=== PATIENT | female | born 1940 | race Two or more races ===

== ENCOUNTER 2018-04-05 18:18 | Inpatient (IN) | payer OTHER ==
[~2018-04-05] VITALS: Ht 147.3 cm; Wt 53.7 kg
--- NOTE | 2018-04-05 18:20 | NUR ---
PT [id number] FROM HOME C/O ABDOMINAL DISCOMFORT, CONSTIPATION FOR 2WKS, PT IS AAOX4 JAPANESE SPEAKING, NOT IN RESPIRAOTRY DISTRESS, KEPT RESTED AND COMFORTABLE.
--- NOTE | 2018-04-05 18:25 | NUR ---
DR. ESTES AT BEDSIDE FOR EVAL.
--- NOTE | 2018-04-05 18:32 | NUR ---
LABS DRAWNED AND SENT TO LAB.
[2018-04-05] MEDS ORDERED: IV NS 0.9% 1,000 ML BAG IV ONE ×2 (19:00→20:00)
[2018-04-05] MEDS ORDERED: ACETAMINOPHEN ES 500 MG TABLET ONE (19:00)
[2018-04-05] MEDS ORDERED: ACETAMINOPHEN ES 500 MG TABLET PO ONE (19:00)
[2018-04-05] MEDS ORDERED: LOSA1TAB39 PO (19:10)
[2018-04-05] MEDS ORDERED: AMLO5TAB7 PO (19:10)
[2018-04-05] MEDS ORDERED: ATOR10TA PO (19:10)
[2018-04-05] MEDS ORDERED: CARV12.52 PO ×2 (19:10)
[2018-04-05 19:12] LABS: BASOPHILS % (AUTO) 0.1 % (0.0-2.0); EOSINOPHILS % (AUTO) 0.2 % (0.0-6.0); HEMATOCRIT 36 % (33-45); HEMOGLOBIN 12.2 g/dL (11.5-14.8); LYMPHOCYTES # (AUTO) 0.4 /CMM (0.8-4.8); LYMPHOCYTES % (AUTO) 2.7 % (20.0-44.0); MEAN CORPUSCULAR HGB CONC 34 g/dl (31.0-36.0); MEAN CORPUSCULAR VOLUME 96 fL (82-100); MONOCYTES # (AUTO) 0.1 /CMM (0.1-1.30); MONOCYTES % (AUTO) 0.4 % (2.0-12.0); NEUTROPHILS # (AUTO) 13.2 /CMM (1.8-8.9); NEUTROPHILS % (AUTO) 96.6 % (43.0-81.0); PLATELET COUNT (AUTO) 195 /CMM (150-450); RED BLOOD CELL COUNT(AUTO) 3.73 MIL/uL (4.0-5.2); WHITE BLOOD COUNT (AUTO) 13.6 K/uL (4.3-11.0)
--- NOTE | 2018-04-05 19:27 | NUR ---
ENDORSED TO ASHKAN ROBLES FOR ANGELA.
[2018-04-05 19:28] LABS: CARBON DIOXIDE 30 mmol/L (21-32); CHLORIDE 101 mmol/L (98-107); CREATININE 2.1 mg/dL (0.6-1.3); GLUCOSE 100 mg/dL (74-106); POTASSIUM 3.4 mmol/L (3.5-5.1); SODIUM SERUM 141 mmol/L (136-145); UREA NITROGEN, BLOOD 26 mg/dL (7-18)
--- NOTE | 2018-04-05 19:36 | NUR ---
PT O2 SAT 92%, PUT ON N/C @2LPM, SATURATION WENT UP TO 98%.
[2018-04-05 19:40] LABS: ALANINE AMINOTRANSFERASE 20 U/L (12-78); ALBUMIN 3.1 g/dL (3.4-5.0); ALKALINE PHOSPHATASE 115 U/L (46-116); ASPARTATE AMINOTRANSFERASE 31 U/L (15-37); BILIRUBIN,DIRECT 0.3 mg/dL (0.0-0.2); BILIRUBIN,TOTAL 1.7 mg/dL (0.2-1.0); TOTAL PROTEIN, SERUM 7.1 g/dL (6.4-8.2)
--- NOTE | 2018-04-05 19:47 | NUR ---
URINE COLLECTED AND SENT TO LAB FOR ANALYSIS
[2018-04-05 19:49] LABS: APPEARANCE,URINE SL CLOUDY (CLEAR); BILIRUBIN,URINE NEGATIVE (NEGATIVE); BLOOD, URINE TRACE-INTA Ery/uL (NEGATIVE); COLOR,URINE YELLOW (YELLOW); KETONES,URINE NEGATIVE (NEGATIVE); LEUKOCYTE ESTERASE ,URINE NEGATIVE (NEGATIVE); NITRITE, URINE POSITIVE (NEGATIVE); PH,URINE 7.5 (5.0-8.0); PROTEIN,URINE TRACE mg/dl (NEGATIVE); UGLUCOSE NEGATIVE (NEGATIVE); UROBILINOGEN,URINE 0.2 EU/dL (0.2)
--- NOTE | 2018-04-05 19:56 | NUR ---
PT STATES FEELING BETTER, ALTHOUGH HER BP REMAINS LOW. NOTIFIED. SECOND 1L N/S STARTED PER VERBAL ORDER FROM DR. ESTES.
[2018-04-05 19:57] LABS: BACTERIA,URINE Many /HPF (None Seen); RBC,URINE 0-2 /HPF (0-2); SQUAMOUS EPITHELIAL CELL,UR Few /HPF (None Seen); WBC,URINE 0-2 /HPF (0-3)
[2018-04-05] MEDS ORDERED: NOREPINEPHRINE 8 MG in IV D5W 500 ML IV ONE (20:00)
[2018-04-05] MEDS ORDERED: CEFTRIAXONE 2 G in IV D5W 50 ML IV ONE (20:00)
[2018-04-05] MEDS ORDERED: NOREPINEPHRINE 4 MG/4 ML AMPUL IV ONE (20:03)
[2018-04-05] MEDS ORDERED: CEFTRIAXONE 1 G VIAL ONE (20:03)
--- NOTE | 2018-04-05 20:15 | NUR ---
PICC LINE CONSENT OBTAINED FROM PT.
--- NOTE | 2018-04-05 20:33 | NUR ---
PICC LINE NURSE LARY AT BEDSIDE FOR PLACEMENT. PT TOLERATING WELL.
--- NOTE | 2018-04-05 20:43 | NUR ---
ACCOMPANIED PT TO CT, ON THE MONITOR, PT TOLERATED WELL, ALERT AND ORIENTATED.
--- NOTE | 2018-04-05 20:52 | NUR ---
PT BACK FROM CT.
--- NOTE | 2018-04-05 20:56 | NUR ---
LEVOPHED STARTED. PT BP 55/43. WILL CONTINUE TO MONITOR.
--- NOTE | 2018-04-05 21:16 | NUR ---
PT RESTING BED ALERT AND ORIENTATED X 4, STATING THAT SHE IS FEELING BETTER. BP TRENDING UPWARD.
[2018-04-05] MEDS ORDERED: POTASSIUM CHLORIDE 20 MEQ TAB.PRT.SR PO ONE ×2 (21:29→21:30)
[2018-04-05] MEDS ORDERED: Z GUARD REMEDY 2 OZ OINT TP PRN (21:30)
[2018-04-05] MEDS ORDERED: MAG HYDROX/AL HYDROX/SIMETH 30 ML UDC PO PRN (21:30)
[2018-04-05] MEDS ORDERED: NOREPINEPHRINE 16 MG in IV D5W 500 ML IV PRN (21:30)
[2018-04-05] MEDS ORDERED: ENOXAPARIN SODIUM 40 MG/0.4 ML DISP.SYRIN SQ SCH (21:30)
[2018-04-05] MEDS ORDERED: HYDROCODONE/APAP 5/325MG 1 EACH TABLET PO PRN (21:30)
[2018-04-05] MEDS ORDERED: HEPARIN INFUSION/D5W 500 ML IV PRN (21:30)
[2018-04-05] MEDS ORDERED: MAGNESIUM HYDROXIDE 30 ML UDC PO PRN (21:30)
[2018-04-05] MEDS ORDERED: ONDANSETRON HCL/PF 4 MG/2 ML VIAL IVP PRN (21:30)
[2018-04-05] MEDS ORDERED: ZOLPIDEM TARTRATE 5 MG TABLET PO PRN (21:30)
[2018-04-05] MEDS ORDERED: ASPIRIN 81 MG TAB.CHEW PO ONE (22:00)
[2018-04-05] MEDS ORDERED: HYDROCORTISONE SOD SUCCINATE 100 MG/2 ML VIAL IV STA (22:13)
--- NOTE | 2018-04-05 22:14 | NUR ---
REPORT GIVEN TO ANAI SOUZA RN.
[2018-04-05] MEDS ORDERED: ASPIRIN 81 MG TAB.CHEW ONE (22:18)
[2018-04-05] MEDS ORDERED: HYDROCORTISONE SOD SUCCINATE 100 MG/2 ML VIAL ONE (22:18)
--- NOTE | 2018-04-05 22:27 | NUR ---
Patient is resting comfortably in bed with eyes closed. Easily aroused. VSS
[2018-04-05] MEDS ORDERED: IV NS 0.9% 1,000 ML IV PRN (23:30)
[2018-04-05 23:34] LABS: CALCIUM, SERUM 7.4 mg/dL (8.5-10.1); CARBON DIOXIDE 27 mmol/L (21-32); CHLORIDE 104 mmol/L (98-107); CREATININE 1.9 mg/dL (0.6-1.3); GLUCOSE 133 mg/dL (74-106); POTASSIUM 2.9 mmol/L (3.5-5.1); SODIUM SERUM 140 mmol/L (136-145); UREA NITROGEN, BLOOD 25 mg/dL (7-18)
--- NOTE | 2018-04-05 23:58 | NUR ---
Patient is resting comfortably in bed with eyes closed. Easily aroused. VSS
[2018-04-06] VITALS (59 sets, daily range): BP systolic 63–125; BP diastolic 38–76
[2018-04-06] MEDS ORDERED: PIPERACILLIN /TAZOBACTAM 2.25 G in IV D5W 50 ML IV SCH ×2
[2018-04-06] MEDS ORDERED: PIPERACILLIN /TAZOBACTAM 4.5 G in IV D5W 50 ML IV SCH ×2
[2018-04-06] MEDS ORDERED: BISACODYL SUPP (10 MG) 10 MG/SUPP.RECT SUPP.RECT RC PRN (00:30)
[2018-04-06] MEDS ORDERED: BISACODYL (5 MG) 5 MG TABLET.DR PO PRN (00:30)
--- NOTE | 2018-04-06 00:30 | NUR ---
ICU/RN-ADMITTED THIS 77 Y/O FEMALE FROM ER PER ACLS PROTOCOL. VIA GURNEY,ACCOMPANIED BY ER STAFF. NURSING FOCUS:INFECTION, R/T DIAGNOSIS OF SEVERE SEPSIS. ROUTINE ICU ADMISSION CARE INITIATED.PT. IS AWAKE, ALERT, EXPRESSIVE OF NEEDS IN [place]. EKG SR , BP-147/105, ON LEVOPHED AT 12 MCG/MIN. WILL MONITOR PT. CLOSELY, WILL TITRATE LEVOPHED PER PROTOCOL. AFEBRILE. PT. IS A FULL CODE.
[2018-04-06] MEDS: IV NS 0.9% 1,000 ML IV PRN ×3 (00:53→17:20)
[2018-04-06] MEDS ORDERED: NOREPINEPHRINE 16 MG in IV D5W 500 ML IV PRN (01:00)
[2018-04-06] MEDS ORDERED: Calcium Gluconate 1GM/10ML 4.65 MEQ in IV NS 0.9% 50 ML IV ONE (01:00)
[2018-04-06] MEDS ORDERED: Calcium Gluconate 0.465 MEQ/ML VIAL IV ONE (01:21)
[2018-04-06] MEDS: POTASSIUM CL. PREMIX PERIPHER. 50 ML IV SCH ×8 (01:25→08:53)
[2018-04-06] MEDS ORDERED: PIPERACILLIN /TAZOBACTAM 2.25 G VIAL IV ONE (01:28)
[2018-04-06] MEDS: DOCUSATE SODIUM 250 MG CAPSULE PO SCH ×3 (01:46→16:06)
[2018-04-06] MEDS ORDERED: HEPARIN INFUSION/D5W 500 ML IV ONE (01:46)
[2018-04-06] MEDS: POLYETHYLENE GLYCOL 3350 17 GM POWD.PACK PO SCH ×2 (01:46→09:06)
[2018-04-06] MEDS: ATORVASTATIN 10 MG TABLET PO SCH ×2 (01:52→21:56)
[2018-04-06] MEDS ORDERED: HEPARIN SODIUM, PORCINE 5000 UNITS/1 ML VIAL IV ONE (02:00)
[2018-04-06] MEDS: NOREPINEPHRINE 8 MG in IV D5W 500 ML IV PRN ×3 (03:26→09:23)
[2018-04-06] MEDS ORDERED: NOREPINEPHRINE 4 MG/4 ML AMPUL IV ONE (03:28)
[2018-04-06 04:54] LABS: BASOPHILS % (AUTO) 0.1 % (0.0-2.0); HEMATOCRIT 31 % (33-45); HEMOGLOBIN 10.4 g/dL (11.5-14.8); LYMPHOCYTES # (AUTO) 0.7 /CMM (0.8-4.8); LYMPHOCYTES % (AUTO) 1.6 % (20.0-44.0); MEAN CORPUSCULAR HGB CONC 34 g/dl (31.0-36.0); MEAN CORPUSCULAR VOLUME 97 fL (82-100); MONOCYTES # (AUTO) 0.6 /CMM (0.1-1.30); MONOCYTES % (AUTO) 1.4 % (2.0-12.0); NEUTROPHILS # (AUTO) 45.1 /CMM (1.8-8.9); NEUTROPHILS % (AUTO) 96.9 % (43.0-81.0); PLATELET COUNT (AUTO) 163 /CMM (150-450); RED BLOOD CELL COUNT(AUTO) 3.16 MIL/uL (4.0-5.2)
[2018-04-06 05:00] LABS: WHITE BLOOD COUNT (AUTO) 46.6 K/uL (4.3-11.0)
[2018-04-06 05:19] LABS: CARBON DIOXIDE 26 mmol/L (21-32); CHLORIDE 108 mmol/L (98-107); CREATININE 1.6 mg/dL (0.6-1.3); GLUCOSE 227 mg/dL (74-106); MAGNESIUM 1.5 mg/dL (1.8-2.4); PHOSPHORUS 3.4 mg/dL (2.5-4.9); SODIUM SERUM 144 mmol/L (136-145); UREA NITROGEN, BLOOD 24 mg/dL (7-18)
[2018-04-06 05:53] LABS: BAND % (MANUAL) 14 % (0.0-5.0); LYMPHOCYTES % (MANUAL) 1 % (16-48); MONOCYTES % (MANUAL) 1 % (0-11.0); NEUTROPHILS % (MANUAL) 84 (42-76)
--- NOTE | 2018-04-06 07:54 | NUR ---
SVP RESEARCH & EBUSINESS OPERATIONS NOTE PATIENT IS AWAKE, ALERT, EXPRESSIVE OF NEEDS IN [place].ORIENTED X3 , ON TELE MONITOR SR ON LEVOPHED DRIP AT 28 MCG/MIN. WILL MONITOR PT. CLOSELY, WILL TITRATE LEVOPHED PER PROTOCOL. AFEBRILE. , WITH RT UPPER ARM PICC LINE OM HEPARIN DRIP ORDERED , AND ON IVF ORDERED AND KCL IS INFUSION ORDERED, BED IN LOWEST AND LOCKED POSITION ABLE TO MAKE BM ,KEEP CLEAN DRY , CALL LIGHT WITHIN REACH
[2018-04-06 08:13] LABS: BASOPHILS % (AUTO) 0.1 % (0.0-2.0); HEMATOCRIT 32 % (33-45); HEMOGLOBIN 10.9 g/dL (11.5-14.8); LYMPHOCYTES % (AUTO) 1.8 % (20.0-44.0); MEAN CORPUSCULAR HGB CONC 34 g/dl (31.0-36.0); MEAN CORPUSCULAR VOLUME 98 fL (82-100); MONOCYTES % (AUTO) 1.8 % (2.0-12.0); NEUTROPHILS # (AUTO) 52.2 /CMM (1.8-8.9); NEUTROPHILS % (AUTO) 96.3 % (43.0-81.0); PLATELET COUNT (AUTO) 192 /CMM (150-450)
[2018-04-06 08:17] LABS: WHITE BLOOD COUNT (AUTO) 54.2 K/uL (4.3-11.0)
[2018-04-06 08:44] LABS: PHOSPHORUS 2.5 mg/dL (2.5-4.9)
[2018-04-06 08:55] LABS: THYROID STIMULATING HORMONE 0.959 uIU/mL (0.358-3.74)
[2018-04-06] MEDS: HYDROCORTISONE SOD SUCCINATE 100 MG/2 ML VIAL IV SCH ×3 (09:00→16:07)
[2018-04-06] MEDS ORDERED: AMLODIPINE BESYLATE 5 MG TABLET PO SCH (09:00)
--- NOTE | 2018-04-06 09:44 | NUR ---
BREAD DISTRIBUTOR NOTE ECHO DONE ORDERED , PTT DROWN ORDERED , DR QUIROZ NOTIFIED THAT WBC 54 NO NEW ORDER AT THIS TIME
[2018-04-06] MEDS: PIPERACILLIN /TAZOBACTAM 3.375 G in IV D5W 100 ML IV SCH ×2 (09:50→21:56)
--- NOTE | 2018-04-06 10:00 | NUR ---
FILING AND POLISHING SUPERVISOR NOTE PTT ABOVE 170 ,PER HOSPITAL PROTOCOL WILL HOLD FOR HEPARIN DRIP FOR ONE HOUR AND DECREASE TO 150 UNITS ,WILL MONITOR CLOSELY
--- NOTE | 2018-04-06 11:45 | NUR ---
agricultural produce commission agent note restart heparin drip at 650 units as ordered per hospital protocol
--- NOTE | 2018-04-06 11:59 | NUR ---
CHEMICAL PUMPER NOTE DR PARRA NOTIFIED THAT BLOOD CX GRAM NEGACIDE RODS AWARE THAT ON ZOSYN ALSO NOTIFYED THAT WBC 54 ,AWARE THAT K WAS INFUSED ,WILL COLLECT STOOL FOR C DF ORDERED
[2018-04-06] MEDS ORDERED: Magnesium 1GM/D5W 100ML PREMIX 100 ML IV SCH (12:00)
[2018-04-06] MEDS: FLUDROCORTISONE 0.1 MG TABLET PO SCH ×2 (12:05→17:17)
--- NOTE | 2018-04-06 12:51 | NUR ---
SUPERVISOR RESEARCH SHOP NOTE EKG DONE ORDERED
--- NOTE | 2018-04-06 14:00 | NUR ---
BICYCLE MESSENGER NOTE \ BP STILL LOW 88/[address] AIDA MAY LEVOPHED 16 MCG\ML, WILL F\U
[2018-04-06] MEDS: NOREPINEPHRINE 16 MG in IV D5W 500 ML IV PRN (14:27)
--- NOTE | 2018-04-06 15:56 | NUR ---
MULE RIDER NOTE STOOL FOR CDIF COLLECTED ORDERED, KEEP CLEAN DRY
--- NOTE | 2018-04-06 17:13 | NUR ---
COURT STENOGRAPHER NOTE PTT NOT READY YET, WILL F\U WITH LAB
--- NOTE | 2018-04-06 17:53 | NUR ---
ASSIGNMENT EDITOR NOTE PTT 134.7, PER HOSPITAL PROTOCOL WILL HOLD HEPARIN DRIP FOR ONE HOUR AND THEN DECREASE TO 150 UNITS AND START AT 1900 AT 500 UNITS\HR
[2018-04-06] MEDS ORDERED: CARVEDILOL 12.5 MG TABLET PO SCH (18:00)
--- NOTE | 2018-04-06 18:26 | NUR ---
PRINTED CIRCUIT BOARDS SOLDER LEVELER NOTE FAMILY AT BEDSIDE , PATIENT HAS DINNER , ABLE TO FEED SELF WITH ASSISTANCE , CONT ON LEVOPHED DRIP ORDERED AND IVF ORDERED , HEPARIN DRIP ON HOLD AT THIS TIME ,WILL CONT TO MONITOR CLOSELY
--- NOTE | 2018-04-06 19:23 | NUR ---
Patient speaks Hungarian, has good family support.She lives at home with family. Prior to admit she was ambulatory and semi-independent with adl's. Has no DME or homehealth reported. She is currently on Levophed and heparin gtt. Approval ICU LOC received from [place]. Plan to transfer [place] when stable. Addendum: 04/06/18 at 1924 by MERVIN LEDESMA RN Amended: Links added.
--- NOTE | 2018-04-06 20:20 | NUR ---
FINANCIAL REPORTING SPECIALIST NOTES RECEIVED PATIENT AWAKE,ALERT,NOT IN ANY DISTRESS,DENIES ANY PAIN.FAMILY AT BEDSIDE,PATIENT CONVERSES IN [place],COHERENT AND APPROPRIATE( PER FAMILY),FOLLOWS COMMANDS. ON LEVOPHED DRIP FOR BP SUPPORT VIA RRUA PICC LINE,HEPARIN DRIP AT 500 UNITS/HR (DOSE ADJUSTED AT 1900 PM BASED ON PROTOCOL( VRU=776).WILL RECHECKED PTT AT 12 MIDNIGHT . WILL CLOSELY MONITOR FOR BLEEDING,WILL CLOSELY MONITOR FOR CHEST PAIN. COMFORT CARE DONE ,NEEDS ATTENDED.
[2018-04-07] VITALS (78 sets, daily range): BP systolic 65–139; BP diastolic 45–77
--- NOTE | 2018-04-07 | NUR ---
CAREER DEVELOPMENT MANAGER NOTES REMAINS STABLE,SLOWLY TITRATING DOWN LEVOPHED DRIP ,TOLERATING WELL.NO BLEEDING NOTED ,STILL ON HEPARIN DRIP AT 500 U/HR
[2018-04-07] MEDS: FLUDROCORTISONE 0.1 MG TABLET PO SCH ×2 (00:28→06:29)
[2018-04-07] MEDS: NOREPINEPHRINE 16 MG in IV D5W 500 ML IV PRN (00:33)
[2018-04-07] MEDS: IV NS 0.9% 1,000 ML IV PRN ×3 (00:39→17:58)
--- NOTE | 2018-04-07 01:25 | NUR ---
PTT=74, HEPSRIN DRIP DECREASE BY 500 UNITS PER [facility] PROTOCOL( 450 UNITS /HR).WILL RECHECKED PTT IN 6 HOURS.
--- NOTE | 2018-04-07 04:00 | NUR ---
PHLEBOTOMY SUPERVISOR NOTE STABLE,LEVOPHED DOWN TO 10 MCG,NO BLEEDING ,STILL ON HEPARIN DRIP.
[2018-04-07 04:48] LABS: BASOPHILS # (AUTO) 0.2 /CMM (0.0-0.2); BASOPHILS % (AUTO) 0.4 % (0.0-2.0); EOSINOPHILS % (AUTO) 0.3 % (0.0-6.0); HEMATOCRIT 30 % (33-45); HEMOGLOBIN 10.1 g/dL (11.5-14.8); LYMPHOCYTES # (AUTO) 1.1 /CMM (0.8-4.8); LYMPHOCYTES % (AUTO) 2.1 % (20.0-44.0); MEAN CORPUSCULAR HGB CONC 34 g/dl (31.0-36.0); MEAN CORPUSCULAR VOLUME 97 fL (82-100); MONOCYTES # (AUTO) 0.7 /CMM (0.1-1.30); MONOCYTES % (AUTO) 1.3 % (2.0-12.0); NEUTROPHILS # (AUTO) 51.6 /CMM (1.8-8.9); NEUTROPHILS % (AUTO) 95.9 % (43.0-81.0); PLATELET COUNT (AUTO) 157 /CMM (150-450); RED BLOOD CELL COUNT(AUTO) 3.08 MIL/uL (4.0-5.2)
[2018-04-07 05:00] LABS: ALANINE AMINOTRANSFERASE 20 U/L (12-78); ALBUMIN 2.1 g/dL (3.4-5.0); ALKALINE PHOSPHATASE 96 U/L (46-116); ASPARTATE AMINOTRANSFERASE 27 U/L (15-37); BILIRUBIN,TOTAL 0.8 mg/dL (0.2-1.0); CALCIUM, SERUM 7.5 mg/dL (8.5-10.1); CARBON DIOXIDE 24 mmol/L (21-32); CHLORIDE 110 mmol/L (98-107); CREATININE 1.1 mg/dL (0.6-1.3); GLUCOSE 221 mg/dL (74-106); MAGNESIUM 1.6 mg/dL (1.8-2.4); POTASSIUM 3.7 mmol/L (3.5-5.1); SODIUM SERUM 144 mmol/L (136-145); UREA NITROGEN, BLOOD 20 mg/dL (7-18)
[2018-04-07 05:32] LABS: WHITE BLOOD COUNT (AUTO) 53.8 K/uL (4.3-11.0)
[2018-04-07 05:49] LABS: BAND % (MANUAL) 10 % (0.0-5.0); LYMPHOCYTES % (MANUAL) 3 % (16-48); MONOCYTES % (MANUAL) 1 % (0-11.0); NEUTROPHILS % (MANUAL) 86 (42-76)
--- NOTE | 2018-04-07 06:00 | NUR ---
FACILITIES CUSTODIAN NOTES REMAINS STABLE ,NO BLEEDING,NO CHEST PAIN.LEVOPHED DRIP NOW AT 6 MCG/MIN. BP STABLE. 0700 AWAITING PTT RESULT.REPORT GIVEN TO ERIN LUTHER
[2018-04-07] MEDS ORDERED: FLUDROCORTISONE 0.1 MG TABLET ONE (06:16)
[2018-04-07] MEDS: Magnesium 1GM/D5W 100ML PREMIX 100 ML IV SCH ×2 (07:52→09:01)
--- NOTE | 2018-04-07 08:55 | NUR ---
received pt from conduit mechanic, a/o x4, SR, receiving levo at 6mcg, heparin drip off at 0700, NC at 2L sat well, tolerates diet, v/s stable, no pain, family at the bedside.
[2018-04-07] MEDS: POLYETHYLENE GLYCOL 3350 17 GM POWD.PACK PO SCH (09:01)
[2018-04-07] MEDS: DOCUSATE SODIUM 250 MG CAPSULE PO SCH ×2 (09:01→17:00)
[2018-04-07] MEDS: PIPERACILLIN /TAZOBACTAM 3.375 G in IV D5W 100 ML IV SCH ×2 (10:19→21:37)
--- NOTE | 2018-04-07 12:37 | NUR ---
pt is resting in the bed, SR, on levo at 7mcg, v/s stable, no pain, pt turned and repositioned q2hrs.
--- NOTE | 2018-04-07 16:54 | NUR ---
pt is resting in the bed, SR, on levo at 7mcg, on 2L 02 sat well, v/s stable, no pain, pt cleaned, changed and repositioned q2hrs.
--- NOTE | 2018-04-07 19:30 | NUR ---
ICU/RN RECEIVED PT AAOX3,SPEAKS AND UNDERSTAND ONLY WELSH.SPOKE TO PT IN BROKEN WELSH,ABLE TO UNDERSTAND WHAT IS BEING SAID.ON LEVOPHED DRIP AT 6MCG/MIN.WILL ATTEMPT TO WEAN PT OFF PRESSOR.
--- NOTE | 2018-04-07 20:00 | NUR ---
ICU/MEDICAL AFFAIRS DIRECTOR AT BED SIDE VISITING,CONDITION REPORT GIVEN AND PLAN OF CARE DISCUSSED W/FAMILY AND PT.LEVOPHED DRIP DECREASED TO 5MCG/MIN.
[2018-04-07] MEDS: ATORVASTATIN 10 MG TABLET PO SCH (21:36)
[2018-04-08] VITALS (29 sets, daily range): BP systolic 92–147; BP diastolic 46–89
--- NOTE | 2018-04-08 02:00 | NUR ---
ICU/RN LEVOPHED DRIP TAPERED TO OFF,W/SBP OF 125MMHG.PT VOIDING FREQUENTLY.OFFERS NO COMPLAINTS.
[2018-04-08] MEDS: IV NS 0.9% 1,000 ML IV PRN (02:05)
--- NOTE | 2018-04-08 04:04 | NUR ---
ICU/RN REMAINS OFF LEVOPHED W/SBP 112MMHG.DENIES PAIN OR DISCOMFORT.MONITOR SINUS FRANKLYN.
[2018-04-08 05:29] LABS: ALANINE AMINOTRANSFERASE 17 U/L (12-78); ALBUMIN 1.8 g/dL (3.4-5.0); ALKALINE PHOSPHATASE 58 U/L (46-116); ASPARTATE AMINOTRANSFERASE 17 U/L (15-37); BILIRUBIN,TOTAL 0.7 mg/dL (0.2-1.0); CALCIUM, SERUM 6.9 mg/dL (8.5-10.1); CARBON DIOXIDE 26 mmol/L (21-32); CHLORIDE 115 mmol/L (98-107); CREATININE 0.9 mg/dL (0.6-1.3); GLUCOSE 84 mg/dL (74-106); MAGNESIUM 1.6 mg/dL (1.8-2.4); PHOSPHORUS 1.8 mg/dL (2.5-4.9); SODIUM SERUM 150 mmol/L (136-145); TOTAL PROTEIN, SERUM 5.1 g/dL (6.4-8.2); UREA NITROGEN, BLOOD 11 mg/dL (7-18)
[2018-04-08 05:42] LABS: BASOPHILS # (AUTO) 0.1 /CMM (0.0-0.2); BASOPHILS % (AUTO) 0.3 % (0.0-2.0); EOSINOPHILS % (AUTO) 0.7 % (0.0-6.0); HEMATOCRIT 28 % (33-45); HEMOGLOBIN 9.5 g/dL (11.5-14.8); LYMPHOCYTES # (AUTO) 1.7 /CMM (0.8-4.8); LYMPHOCYTES % (AUTO) 7.3 % (20.0-44.0); MEAN CORPUSCULAR HGB CONC 34 g/dl (31.0-36.0); MEAN CORPUSCULAR VOLUME 97 fL (82-100); MONOCYTES # (AUTO) 0.5 /CMM (0.1-1.30); MONOCYTES % (AUTO) 2.1 % (2.0-12.0); NEUTROPHILS # (AUTO) 21.5 /CMM (1.8-8.9); NEUTROPHILS % (AUTO) 89.6 % (43.0-81.0); PLATELET COUNT (AUTO) 102 /CMM (150-450)
[2018-04-08] MEDS ORDERED: POTASSIUM CL. PREMIX PERIPHER. 50 ML ONE (06:40)
[2018-04-08] MEDS: POTASSIUM CL. PREMIX PERIPHER. 50 ML IV SCH ×2 (06:42→08:04)
--- NOTE | 2018-04-08 06:50 | NUR ---
ICU/RN POTASSIUM OF 2.0 WILL BE REPLACED W/ 60MEQ IVPB ORDERED BUY .IVF DC'D ORDERED BY SAME
[2018-04-08] MEDS ORDERED: IV NS 0.9% 250 ML BAG IV PRN (07:00)
--- NOTE | 2018-04-08 07:09 | NUR ---
ICU/RN REPORT AND CARE OF PT.GIVEN TO ERIN Lindsay
[2018-04-08] MEDS: DOCUSATE SODIUM 250 MG CAPSULE PO SCH ×2 (08:05→17:32)
[2018-04-08] MEDS: POLYETHYLENE GLYCOL 3350 17 GM POWD.PACK PO SCH (08:05)
[2018-04-08] MEDS: POTASSIUM CHLORIDE 20 MEQ TAB.PRT.SR PO SCH ×4 (08:32→12:26)
[2018-04-08] MEDS: Magnesium 1GM/D5W 100ML PREMIX 100 ML IV SCH ×2 (08:32→09:37)
--- NOTE | 2018-04-08 08:57 | NUR ---
received pt from film processing shift supervisor, a/o x4, SR, on 2L NC, sat well, v/s stable, no pain, pt turns and repositions by herself, family at the bedside.
[2018-04-08 08:59] LABS: BASOPHILS # (AUTO) 0.1 /CMM (0.0-0.2); BASOPHILS % (AUTO) 0.4 % (0.0-2.0); EOSINOPHILS % (AUTO) 0.9 % (0.0-6.0); HEMATOCRIT 31 % (33-45); HEMOGLOBIN 10.7 g/dL (11.5-14.8); LYMPHOCYTES # (AUTO) 1.4 /CMM (0.8-4.8); LYMPHOCYTES % (AUTO) 7.1 % (20.0-44.0); MEAN CORPUSCULAR HGB CONC 35 g/dl (31.0-36.0); MEAN CORPUSCULAR VOLUME 95 fL (82-100); MONOCYTES # (AUTO) 0.4 /CMM (0.1-1.30); MONOCYTES % (AUTO) 1.9 % (2.0-12.0); NEUTROPHILS # (AUTO) 17.9 /CMM (1.8-8.9); NEUTROPHILS % (AUTO) 89.7 % (43.0-81.0); PLATELET COUNT (AUTO) 108 /CMM (150-450); RED BLOOD CELL COUNT(AUTO) 3.27 MIL/uL (4.0-5.2); WHITE BLOOD COUNT (AUTO) 19.9 K/uL (4.3-11.0)
[2018-04-08] MEDS: PIPERACILLIN /TAZOBACTAM 3.375 G in IV D5W 100 ML IV SCH ×2 (09:03→21:29)
[2018-04-08 09:20] LABS: ALANINE AMINOTRANSFERASE 19 U/L (12-78); ALKALINE PHOSPHATASE 63 U/L (46-116); ASPARTATE AMINOTRANSFERASE 23 U/L (15-37); BILIRUBIN,TOTAL 0.8 mg/dL (0.2-1.0); CALCIUM, SERUM 7.2 mg/dL (8.5-10.1); CARBON DIOXIDE 26 mmol/L (21-32); CHLORIDE 113 mmol/L (98-107); CREATININE 0.9 mg/dL (0.6-1.3); GLUCOSE 105 mg/dL (74-106); MAGNESIUM 1.6 mg/dL (1.8-2.4); PHOSPHORUS 1.5 mg/dL (2.5-4.9); SODIUM SERUM 149 mmol/L (136-145); TOTAL PROTEIN, SERUM 5.7 g/dL (6.4-8.2); UREA NITROGEN, BLOOD 10 mg/dL (7-18)
[2018-04-08 09:22] LABS: POTASSIUM 2.2 mmol/L (3.5-5.1)
[2018-04-08] MEDS ORDERED: K PHOS NEUTRAL 250 MG TABLET PO ONE (10:00)
--- NOTE | 2018-04-08 10:00 | NUR ---
pt is on cool aerosol. Addendum: 04/08/18 at 1530 by ERIN FARRELL RN wrong documentation, wrong patient
--- NOTE | 2018-04-08 14:00 | NUR ---
RECEIVED REPORT FROM ERIN LUTHER FROM ICU. PATIENT IS GOING TO BE TRANSFERRED TO TELEMETRY FLOOR.
--- NOTE | 2018-04-08 15:30 | NUR ---
POWDER MIXERADAPTED PHYSICAL EDUCATION AIDE NOTE RECEIVED PATIENT FROM ICU. PATIENT IS TRANSFERRED TO TELEMETRY FLOOR FOR LOWER ACUITY OF CARE. PATIENT IS ALERT ORIENTED X4. UZBEK SPEAKING, FAMILY AT BEDSIDE, HELP WITH COMMUNICATION. PATIENT IS ON 2L O2 VIA NC TOLERATING WELL. IN NO APPARENT DISTRESS OR DISCOMFORT AT THIS TIME. RESPIRATIONS EVEN AND UNLABORED. DENIES PAIN AND SOB. PATIENT IS STABLE, VITALS SIGNS STABLE. AFEBRILE AT THIS TIME. WAS PLACED ON TELE MONITORING, SR AND HR IN 80S. PHYSICAL ASSESSMENT PERFORMED, SKIN IS INTACT. RIGHT FA PICC LINE IN PLACE, FLASHED, PATENT AND INTACT. PATIENT WAS MADE COMFORTABLE IN BED. SAFETY MEASURES APPLIED, BED IN LOW LOCKED POSITION, SIDE RAILS UP X2, CALL LIGHT WITHIN EASY REACH. WILL CONTINUE TO MONITOR AND CARRY OUT FURTHER ORDERS.
--- NOTE | 2018-04-08 15:30 | NUR ---
pt transferred to [facility], ACLS followed, stable, family at the bedside, report given to Tika.
--- NOTE | 2018-04-08 18:48 | NUR ---
POCKET SETTER CLOSING NOTE PATIENT SITTING IN BED. ALERT ORIENTED X4. ON ROOM AIR, TOLERATING WELL. IN NO APPARENT DISTRESS OR DISCOMFORT AT THIS TIME. RESPIRATIONS EVEN AND UNLABORED. DENIES PAIN AND SOB. PATIENT IS STABLE, VITALS SIGNS STABLE. AFEBRILE AT THIS TIME. ON TELE MONITORING, SR AND HR IN 70S. PATIENT IS ABLE TO COMMUNICATE NEEDS IN [place]. FAMILY AT BEDSIDE ASSISTING WITH COMMUNICATION. RIGHT FA PICC LINE IN PLACE, FLASHED, PATENT AND INTACT. PATIENT KEPT CLEAN AND COMFORTABLE. ALL NEEDS ATTENDED, SAFETY MEASURES IN PLACE, BED IN LOW LOCKED POSITION, SIDE RAILS UP X2, CALL LIGHT WITHIN EASY REACH, WILL ENDORSE TO PM NURSE FOR ANGELA.
--- NOTE | 2018-04-08 19:10 | NUR ---
RN OPENING NOTES PT AWAKE AND RESTING IN BED. FAMILY AT BEDSIDE. PT PRIMARILY [place] SPEAKER. NO COMPLAINTS OF PAIN, SOB OR DISTRESS AT THIS TIME. PT TELE MONITORED AT SR WITH A RATE OF 75. PT HAS A RIGHT FA PICC INTACT AND PATENT. SAFETY PRECAUTIONS IN PLACE, BED IN LOWEST LOCKED POSITION, X2 SIDE RAILS UP AND CALL LIGHT WITHIN REACH. WILL CONTINUE TO MONITOR.
[2018-04-08] MEDS ORDERED: PIPERACILLIN /TAZOBACTAM 3.375 G VIAL IV ONE (21:15)
[2018-04-08] MEDS: ATORVASTATIN 10 MG TABLET PO SCH (21:28)
[2018-04-09] VITALS: BP 152/93
[2018-04-09 04:00] VITALS: BP 106/54
[2018-04-09] MEDS: ACETAMINOPHEN 325 MG TABLET PO PRN (04:56)
--- NOTE | 2018-04-09 06:41 | NUR ---
RN CLOSING NOTES PT AWAKE AND RESTING IN BED. PT PRIMARILY [place]OV[place] SPEAKER. NO COMPLAINTS OF PAIN, SOB OR DISTRESS OVERNIGHT. PT GIVEN TYLENOL FOR TEMP OF 99.6, TEMP CURRENTLY 98.9. PT TELE MONITORED AT SR WITH A RATE OF 75. PT HAS A RIGHT FA PICC INTACT AND PATENT. SAFETY PRECAUTIONS IN PLACE, BED IN LOWEST LOCKED POSITION, X2 SIDE RAILS UP AND CALL LIGHT WITHIN REACH. WILL ENDORSE TO DAY SHIFT NURSE FOR CONTINUITY OF CARE.
[2018-04-09 06:50] LABS: BASOPHILS % (AUTO) 0.4 % (0.0-2.0); EOSINOPHILS % (AUTO) 1.3 % (0.0-6.0); HEMATOCRIT 27 % (33-45); HEMOGLOBIN 9.5 g/dL (11.5-14.8); LYMPHOCYTES # (AUTO) 0.8 /CMM (0.8-4.8); LYMPHOCYTES % (AUTO) 11.4 % (20.0-44.0); MEAN CORPUSCULAR HGB CONC 35 g/dl (31.0-36.0); MEAN CORPUSCULAR VOLUME 95 fL (82-100); MONOCYTES # (AUTO) 0.4 /CMM (0.1-1.30); NEUTROPHILS # (AUTO) 6.1 /CMM (1.8-8.9); NEUTROPHILS % (AUTO) 81.9 % (43.0-81.0); PLATELET COUNT (AUTO) 103 /CMM (150-450); RED BLOOD CELL COUNT(AUTO) 2.88 MIL/uL (4.0-5.2); WHITE BLOOD COUNT (AUTO) 7.4 K/uL (4.3-11.0)
[2018-04-09 07:06] LABS: ALANINE AMINOTRANSFERASE 18 U/L (12-78); ALBUMIN 1.9 g/dL (3.4-5.0); ALKALINE PHOSPHATASE 59 U/L (46-116); ASPARTATE AMINOTRANSFERASE 19 U/L (15-37); CALCIUM, SERUM 7.1 mg/dL (8.5-10.1); CARBON DIOXIDE 27 mmol/L (21-32); CHLORIDE 111 mmol/L (98-107); CREATININE 0.8 mg/dL (0.6-1.3); GLUCOSE 79 mg/dL (74-106); MAGNESIUM 1.8 mg/dL (1.8-2.4); PHOSPHORUS 1.9 mg/dL (2.5-4.9); SODIUM SERUM 146 mmol/L (136-145); TOTAL PROTEIN, SERUM 5.2 g/dL (6.4-8.2); UREA NITROGEN, BLOOD 9 mg/dL (7-18)
[2018-04-09 07:20] LABS: POTASSIUM 2.7 mmol/L (3.5-5.1)
--- NOTE | 2018-04-09 07:56 | NUR ---
WHOLESALE AGRONOMIST OPENING NOTE RECEIVED PATIENT IN BED. ALERT ORIENTED X4. ON ROOM AIR, TOLERATING WELL. IN NO APPARENT DISTRESS OR DISCOMFORT AT THIS TIME. RESPIRATIONS EVEN AND UNLABORED. DENIES PAIN AND SOB. PATIENT IS STABLE, VITALS SIGNS STABLE. AFEBRILE AT THIS TIME. ON TELE MONITORING, SR AND HR IN 70S. PATIENT IS ABLE TO COMMUNICATE NEEDS IN BENIN[place]. RIGHT FA PICC LINE IN PLACE, FLASHED, PATENT AND INTACT. PATIENT KEPT CLEAN AND COMFORTABLE. ALL NEEDS ATTENDED, SAFETY MEASURES IN PLACE, BED IN LOW LOCKED POSITION, SIDE RAILS UP X2, CALL LIGHT WITHIN EASY REACH, WILL CONTINUE TO MONITOR.
[2018-04-09 08:00] VITALS: BP 103/54
[2018-04-09] MEDS: POLYETHYLENE GLYCOL 3350 17 GM POWD.PACK PO SCH (08:25)
[2018-04-09] MEDS: DOCUSATE SODIUM 250 MG CAPSULE PO SCH ×2 (08:25→16:19)
[2018-04-09] MEDS: PIPERACILLIN /TAZOBACTAM 3.375 G in IV D5W 100 ML IV SCH (09:16)
[2018-04-09] MEDS: POTASSIUM CL. PREMIX PERIPHER. 50 ML IV SCH ×6 (09:16→16:19)
[2018-04-09 11:56] LABS: BAND % (MANUAL) 1 % (0.0-5.0); LYMPHOCYTES % (MANUAL) 19 % (16-48); MONOCYTES % (MANUAL) 2 % (0-11.0); NEUTROPHILS % (MANUAL) 78 (42-76)
[2018-04-09] MEDS: POTASSIUM CHLORIDE 20 MEQ TAB.PRT.SR PO SCH ×3 (11:57→14:47)
[2018-04-09] MEDS: Potassium Phosphate meq 11 MEQ in IV NS 0.9% 100 ML IV SCH ×2 (13:10→16:19)
[2018-04-09] MEDS: CEFTRIAXONE 1 G in IV D5W 50 ML IV SCH (14:06)
[2018-04-09 16:00] VITALS: BP 125/80
--- NOTE | 2018-04-09 16:15 | NUR ---
PATIENT REPORTED MILD SOB. ASKED TO HAVE SUPPLEMENTAL OXYGEN IT HELPS HER WITH BREATHING. SATURATION IS WNL. PATIENT WAS PLACED ON 2L O2 VIA NC. WILL CONTINUE TO MONITOR.
--- NOTE | 2018-04-09 16:45 | NUR ---
PER DR. PARRA ORDER REPEAT BMP AND PHOSPHORUS AFTER ORDERED ELECTROLYTES HAVE BEEN REPLACED. NOTED AND CARRIED OUT.
--- NOTE | 2018-04-09 18:22 | NUR ---
MS RN CLOSING NOTE PATIENT SITTING IN BED. ALERT ORIENTED X4. ON 2L O2 VIA NC, TOLERATING WELL. IN NO APPARENT DISTRESS OR DISCOMFORT AT THIS TIME. RESPIRATIONS EVEN AND UNLABORED. DENIES PAIN AND SOB. PATIENT IS STABLE, VITALS SIGNS STABLE. AFEBRILE AT THIS TIME. PATIENT IS ABLE TO COMMUNICATE NEEDS IN [place]. FAMILY AT BEDSIDE ASSISTING WITH COMMUNICATION. RIGHT FA PICC LINE IN PLACE, FLASHED, PATENT AND INTACT. PATIENT KEPT CLEAN AND COMFORTABLE. ALL NEEDS ATTENDED, SAFETY MEASURES IN PLACE, BED IN LOW LOCKED POSITION, SIDE RAILS UP X2, CALL LIGHT WITHIN EASY REACH, WILL ENDORSE TO PM NURSE FOR ANGELA.
--- NOTE | 2018-04-09 19:29 | NUR ---
RN MS OPENING NOTES RECEIVED PATIENT IN BED AWAKE, ALERT AND ORIENTED X4, VERBALLY RESPONSIVE, ABLE TO MAKE NEEDS KNOWN. FAMILY AT BEDSIDE. BREATHING EVEN AND UNLABORED. NO SOB NOTED. ON 2LPM OXYGEN VIA NC. NO COMPLAINTS OF PAIN OR DISCOMFORT. RIGHT FOREARM PICC LINE INTACT AND PATENT. SKIN DRY AND WARM TO TOUCH. AFEBRILE. ALL OTHER NEEDS ATTENDED TO. SAFETY MEASURES IN PLACE. CALL LIGHT WITHIN REACH. WILL CONTINUE TO MONITOR.
[2018-04-09 20:00] VITALS: BP_SYST 138; BP_SYST 139; BP_DIAS 85
[2018-04-09] MEDS: ATORVASTATIN 10 MG TABLET PO SCH (21:18)
[2018-04-09 21:39] LABS: CALCIUM, SERUM 7.6 mg/dL (8.5-10.1); CARBON DIOXIDE 24 mmol/L (21-32); CHLORIDE 111 mmol/L (98-107); CREATININE 0.7 mg/dL (0.6-1.3); GLUCOSE 105 mg/dL (74-106); PHOSPHORUS 2.1 mg/dL (2.5-4.9); POTASSIUM 4.7 mmol/L (3.5-5.1); SODIUM SERUM 142 mmol/L (136-145); UREA NITROGEN, BLOOD 10 mg/dL (7-18)
[2018-04-10] MEDS: ACETAMINOPHEN 325 MG TABLET PO PRN ×2 (02:49→13:35)
--- NOTE | 2018-04-10 06:40 | NUR ---
RN MS CLOSING NOTES PATIENT IN BED AWAKE. NO ACUTE CHANGES THROUGHOUT SHIFT. BREATHING EVEN AND UNLABORED. NO SOB NOTED. ON 2LPM OXYGEN VIA NC - ON AND OFF. NO COMPLAINTS OF PAIN OR DISCOMFORT. RIGHT FOREARM PICC LINE INTACT AND PATENT WITH 5ML NS TKO. KEPT CLEAN DRY AND COMFORTABLE. ALL OTHER NEEDS ATTENDED TO. SAFETY MEASURES IN PLACE. CALL LIGHT WITHIN REACH. WILL ENDORSE TO ONCOMING NURSE FOR CONTINUITY OF CARE.
[2018-04-10 07:04] LABS: BASOPHILS % (AUTO) 0.3 % (0.0-2.0); EOSINOPHILS % (AUTO) 0.6 % (0.0-6.0); HEMATOCRIT 26 % (33-45); HEMOGLOBIN 8.8 g/dL (11.5-14.8); LYMPHOCYTES # (AUTO) 0.7 /CMM (0.8-4.8); LYMPHOCYTES % (AUTO) 14.8 % (20.0-44.0); MEAN CORPUSCULAR HGB CONC 34 g/dl (31.0-36.0); MEAN CORPUSCULAR VOLUME 97 fL (82-100); MONOCYTES # (AUTO) 0.6 /CMM (0.1-1.30); MONOCYTES % (AUTO) 11.8 % (2.0-12.0); NEUTROPHILS # (AUTO) 3.6 /CMM (1.8-8.9); NEUTROPHILS % (AUTO) 72.5 % (43.0-81.0); PLATELET COUNT (AUTO) 92 /CMM (150-450)
[2018-04-10 07:22] LABS: ALANINE AMINOTRANSFERASE 20 U/L (12-78); ALBUMIN 2.1 g/dL (3.4-5.0); ALKALINE PHOSPHATASE 58 U/L (46-116); ASPARTATE AMINOTRANSFERASE 25 U/L (15-37); BILIRUBIN,TOTAL 0.7 mg/dL (0.2-1.0); CALCIUM, SERUM 7.7 mg/dL (8.5-10.1); CARBON DIOXIDE 26 mmol/L (21-32); CHLORIDE 112 mmol/L (98-107); CREATININE 0.7 mg/dL (0.6-1.3); GLUCOSE 86 mg/dL (74-106); MAGNESIUM 1.5 mg/dL (1.8-2.4); PHOSPHORUS 2.4 mg/dL (2.5-4.9); POTASSIUM 4.1 mmol/L (3.5-5.1); SODIUM SERUM 144 mmol/L (136-145); TOTAL PROTEIN, SERUM 5.5 g/dL (6.4-8.2); UREA NITROGEN, BLOOD 8 mg/dL (7-18)
--- NOTE | 2018-04-10 07:45 | NUR ---
M/S RN - Assessment Patient awake, A/ O x 3, denies pain, not in any form of distress. MELITA PICC line is patent, intact, with no signs of infiltration. Labs reviewed noted with low magnesium 1.5 and phosphorus 2.4, Dr. Valera made aware. Fall precautions maintained. All needs attended and met. Family at bedside updated with treatment plan. Will continue with current medical management.
[2018-04-10] MEDS: POLYETHYLENE GLYCOL 3350 17 GM POWD.PACK PO SCH (08:02)
[2018-04-10] MEDS: DOCUSATE SODIUM 250 MG CAPSULE PO SCH ×2 (08:02→16:21)
[2018-04-10] MEDS: Magnesium 1GM/D5W 100ML PREMIX 100 ML IV SCH ×2 (08:30→09:30)
[2018-04-10] MEDS ORDERED: SULF1TAB48 PO (08:35)
[2018-04-10 08:38] LABS: BAND % (MANUAL) 1 % (0.0-5.0); LYMPHOCYTES % (MANUAL) 15 % (16-48); MONOCYTES % (MANUAL) 8 % (0-11.0); NEUTROPHILS % (MANUAL) 75 (42-76)
[2018-04-10 08:39] LABS: EOSINOPHILS % (MANUAL) 1 % (0-4)
[2018-04-10] MEDS ORDERED: Magnesium 1GM/D5W 100ML PREMIX PIGGYBACK IV ONE (10:30)
--- NOTE | 2018-04-10 13:40 | NUR ---
M/S RN - Notes Patient with elevated temp 102.6F orally, ice pack applied, tylenol 650 mg po given, light blanket in place, encourage to drink plenty of fluids. Will notify Dr. Valera.
[2018-04-10] MEDS ORDERED: K PHOS NEUTRAL 250 MG TABLET PO ONE (14:00)
[2018-04-10] MEDS: CEFTRIAXONE 1 G in IV D5W 50 ML IV SCH (14:45)
--- NOTE | 2018-04-10 14:45 | NUR ---
M/S RN - Notes Patient in no acute distress, latest temp 100.6F oral, ok to discharge home later today per Dr. Valera. Family at bedside made aware.
--- NOTE | 2018-04-10 17:30 | NUR ---
M/S RN - PICC line removal Explained PICC line removal to the patient and she verbalized understanding of teachings. Right upper ext PICC line removed as ordered, PICC length of 39 cm, no jagged edges seen, no redness, no excessive bleeding, no swelling at the insertion site. Patient tolerated procedure well.
--- NOTE | 2018-04-10 18:36 | NUR ---
M/S RN - Discharge Patient discharged home in stable condition, magnesium and phosphorus replaced, latest temp 98.9F, denies any pain, no c/o SOB, ambulatory with steady gait, A/O x 4. Reviewed discharge instructions with patient and daughter Tika both verbalized full understanding of all teachings including medications/prescription and follow-up care with her PCP within one week. Reviewed instructions to seek immediate medical attention for worsening of symptoms, chest pain, shortness of breath, fever, confusion, weakness, fatigue, dizziness, or any other emergent medical concerns. All belongings with patient and deny any missing items. Patient refused photos to be taken of skin, no breakdown noted. Discharge paperwork signed and copies were given per protocol. Accompanied to the lobby via wheelchair by PET AMBASSADOR and transported via private car with daughter.
[2018-04-11] MEDS ORDERED: ALEN70TA45 PO (14:13)
[2018-04-11] MEDS ORDERED: ASPI-1169 PO (14:27)
[2018-04-11] MEDS ORDERED: CARV12.52 PO (14:53)
[2018-04-11] MEDS ORDERED: AMLO5TAB7 PO (14:53)
[2018-04-11] MEDS ORDERED: LOSA1TAB39 PO (14:53)
== END 2018-04-10 18:39 | disposition home health service (06) | DRG 871 ==
LOC: ER 18:21 → ICU 22:07 → TELE 04-08 15:23 → MED 04-09 09:52
PROVIDERS: ADMIT Internal Medicine; ATTEND Family Medicine
PROC: 02HV33Z Insertion of Infusion Device into Superior Vena Cava, Percutaneous Approach (ICD-10-PCS; principal; 2018-04-05)
PROC: B548ZZA Ultrasonography of Superior Vena Cava, Guidance (ICD-10-PCS; 2018-04-05)
DX: A41.9 Sepsis, unspecified organism (principal); R65.21 Severe sepsis with septic shock; I21.A1 Myocardial infarction type 2; N17.0 Acute kidney failure with tubular necrosis; N39.0 Urinary tract infection, site not specified; E87.2 Acidosis; N18.9 Chronic kidney disease, unspecified; I12.9 Hypertensive chronic kidney disease with stage 1 through stage 4 chronic kidney disease, or unspecified chronic kidney disease; I25.10 Atherosclerotic heart disease of native coronary artery without angina pectoris; K59.00 Constipation, unspecified; D64.9 Anemia, unspecified; E87.6 Hypokalemia; E83.42 Hypomagnesemia; E78.5 Hyperlipidemia, unspecified; E83.39 Other disorders of phosphorus metabolism; B96.20 Unspecified Escherichia coli [E. coli] as the cause of diseases classified elsewhere
CPT/HCPCS: 36415; 36569; 71045-TC; 80048-TC; 80053-TC; 80061-TC; 80076-TC; 81000-TC; 82533; 82728-TC; 83540-TC; 83605-TC; 83735-TC; 84100-TC; 84439-TC; 84443-TC; 84484-TC; 85025-TC; 85730-TC; 87040-TC; 87081-TC; 87086-TC; 87186-TC; 87400; 93307-TC; A4216; A4606; A6402; C1751; G0378; J0610; J0696; J1644; J1720; J2543; J3475; J3480; J3490; J7030; J7050; J7060; Z7610

== ENCOUNTER 2018-04-11 12:13 | Inpatient (IN) | payer OTHER ==
[~2018-04-11] VITALS: Ht 147.3 cm; Wt 55.8 kg
[~2018-04-11 12:13] MED LIST: AMLO5TAB7 PO; ATOR10TA PO; CARV12.52 PO; LOSA1TAB39 PO; SULF1TAB48 PO
--- NOTE | 2018-04-11 12:30 | NUR ---
BIB RA 39 FROM HOME,FEVER. alert and oriented x 4, verbally responsive and able to make needs known. on room air, sating 96%, breathing evenly and unlabored. Denies any pain at this time. kept comfortable, will continue to monitor accordingly. Hooked up on the monitor and put on a gown.
[2018-04-11 12:43] LABS: BASOPHILS % (AUTO) 0.3 % (0.0-2.0); EOSINOPHILS % (AUTO) 0.6 % (0.0-6.0); HEMATOCRIT 30 % (33-45); HEMOGLOBIN 10.1 g/dL (11.5-14.8); LYMPHOCYTES # (AUTO) 0.5 /CMM (0.8-4.8); LYMPHOCYTES % (AUTO) 6.9 % (20.0-44.0); MEAN CORPUSCULAR HGB CONC 34 g/dl (31.0-36.0); MEAN CORPUSCULAR VOLUME 97 fL (82-100); MONOCYTES # (AUTO) 0.3 /CMM (0.1-1.30); MONOCYTES % (AUTO) 4.9 % (2.0-12.0); NEUTROPHILS # (AUTO) 6.1 /CMM (1.8-8.9); NEUTROPHILS % (AUTO) 87.3 % (43.0-81.0); PLATELET COUNT (AUTO) 106 /CMM (150-450); RED BLOOD CELL COUNT(AUTO) 3.06 MIL/uL (4.0-5.2)
[2018-04-11] MEDS ORDERED: ACETAMINOPHEN ES 500 MG TABLET ONE (12:47)
[2018-04-11 12:55] LABS: CALCIUM, SERUM 7.9 mg/dL (8.5-10.1); CARBON DIOXIDE 21 mmol/L (21-32); CHLORIDE 104 mmol/L (98-107); CREATININE 0.9 mg/dL (0.6-1.3); GLUCOSE 229 mg/dL (74-106); POTASSIUM 3.4 mmol/L (3.5-5.1); SODIUM SERUM 139 mmol/L (136-145); UREA NITROGEN, BLOOD 5 mg/dL (7-18)
[2018-04-11] MEDS ORDERED: PIPERACILLIN /TAZOBACTAM 3.375 G in IV D5W 50 ML IV ONE (13:00)
[2018-04-11] MEDS ORDERED: VANCOMYCIN 1 GM in IV D5W 250 ML IV ONE (13:00)
[2018-04-11] MEDS ORDERED: ACETAMINOPHEN ES 500 MG TABLET PO ONE (13:00)
[2018-04-11] MEDS ORDERED: IV NS 0.9% 1,000 ML BAG IV ONE (13:00)
[2018-04-11 13:01] LABS: ALANINE AMINOTRANSFERASE 21 U/L (12-78); ALBUMIN 2.3 g/dL (3.4-5.0); ALKALINE PHOSPHATASE 77 U/L (46-116); ASPARTATE AMINOTRANSFERASE 30 U/L (15-37); BILIRUBIN,DIRECT 0.1 mg/dL (0.0-0.2); BILIRUBIN,TOTAL 0.6 mg/dL (0.2-1.0); TOTAL PROTEIN, SERUM 6.3 g/dL (6.4-8.2)
--- NOTE | 2018-04-11 13:26 | NUR ---
Called [facility] for MD to MD call back.
[2018-04-11] MEDS ORDERED: ASPIRIN 81 MG TAB.CHEW ONE (13:40)
[2018-04-11] MEDS ORDERED: ASPIRIN 81 MG TAB.CHEW PO ONE (14:00)
[2018-04-11] MEDS ORDERED: ALEN70TA45 PO (14:13)
[2018-04-11] MEDS ORDERED: ASPI-1169 PO (14:27)
--- NOTE | 2018-04-11 14:48 | NUR ---
PT IS ASSIGNED TO [facility] RM#: [id number], DX: SEPTIC SHOCK, AND ACCEPTING: CABRERA GALAVIZ NP. AUTHORIZATION WAS GIVEN BY DR [facility] AUTH #: [id number]
[2018-04-11] MEDS ORDERED: AMLO5TAB7 PO (14:53)
[2018-04-11] MEDS ORDERED: CARV12.52 PO (14:53)
[2018-04-11] MEDS ORDERED: LOSA1TAB39 PO (14:53)
[2018-04-11 14:56] LABS: APPEARANCE,URINE Clear (CLEAR); BILIRUBIN,URINE Negative (NEGATIVE); BLOOD, URINE Trace-intact Ery/uL (NEGATIVE); COLOR,URINE Light yellow (YELLOW); KETONES,URINE Negative (NEGATIVE); LEUKOCYTE ESTERASE ,URINE Negative (NEGATIVE); NITRITE, URINE Negative (NEGATIVE); PROTEIN,URINE Negative (NEGATIVE); UGLUCOSE Negative (NEGATIVE); UROBILINOGEN,URINE 0.2 EU/dL (0.2)
[2018-04-11 15:04] LABS: BACTERIA,URINE None seen /HPF (None Seen); RBC,URINE 0-2 /HPF (0-2); SQUAMOUS EPITHELIAL CELL,UR None Seen /HPF (None Seen); WBC,URINE NONE SEEN /HPF (0-3)
--- NOTE | 2018-04-11 15:35 | NUR ---
REPORT GIVEN TO GLENNY LUTHER FOR ANGELA.
[2018-04-11 16:00] VITALS: BP_SYST 85; BP_SYST 99; BP_DIAS 54; BP_DIAS 60
[2018-04-11] MEDS ORDERED: HYDROCODONE/APAP 5/325MG 1 EACH TABLET PO PRN (16:00)
[2018-04-11] MEDS ORDERED: MAGNESIUM HYDROXIDE 30 ML UDC PO PRN (16:00)
[2018-04-11] MEDS ORDERED: ONDANSETRON HCL/PF 4 MG/2 ML VIAL IVP PRN (16:00)
[2018-04-11] MEDS ORDERED: MAG HYDROX/AL HYDROX/SIMETH 30 ML UDC PO PRN (16:00)
[2018-04-11] MEDS ORDERED: ZOLPIDEM TARTRATE 5 MG TABLET PO PRN (16:00)
[2018-04-11] MEDS ORDERED: ACETAMINOPHEN 325 MG TABLET PO PRN (16:00)
[2018-04-11] MEDS ORDERED: TEMAZEPAM 15 MG CAPSULE PO PRN (16:00)
--- NOTE | 2018-04-11 16:00 | NUR ---
RN NOTE PT ARRIVED FROM ER ON GURNEY WITH FAMILY AT BEDSIDE, PT STABLE, AOX3, CALM, NO SOB, DENIES PAIN. NO FEVER, AMBULATORY, SKIN INTACT, IV IN PLACE INTACT, ON COMPUTER ENGINEERING TECHNICIAN SR 87. WILL FOLLOW UP WITH ADMITTING ORDERS. SAFETY MEASURES IN PLACE. CALL LIGHT WITHIN REACH.
--- NOTE | 2018-04-11 16:19 | NUR ---
WHEELED PATIENT TO [facility] ACCOMAPNIED Y EMT AND RN VIA ACLS PROTOCOL.IN NO APPARENT DISTRESS.
[2018-04-11] MEDS: IV NS 0.9% 1,000 ML IV PRN (16:28)
[2018-04-11] MEDS: SULFAMETH/TRIMETH 800/160 MG 1 UDTAB TABLET PO SCH (17:03)
[2018-04-11] MEDS: ATORVASTATIN 10 MG TABLET PO SCH (17:03)
[2018-04-11 18:45] VITALS: BP 99/60
--- NOTE | 2018-04-11 19:40 | NUR ---
CARDIOLOGY TECH NOTE, RECEIVED PATIENT IN BED AWAKE, A/O X4 ABLE TO VERBALIZED NEEDS AND CONCERNS, BREATHING EVEN AND UNLABORED NO SOB/ACUTE DISTRESS NOTED AT THIS TIME, DENIES PAIN, AFEBRILE, IV ACCESS RIGHT AC IN PLACE INTACT, SR ON TIRE CARE MANAGER, HR 80S AT THIS TIME, SAFETY MEASURES IN PLACE, CALL LIGHT WITHIN REACH, FAMILY AT BEDSIDE, WILL CONTINUE TO MONITOR CLOSELY.
[2018-04-11 20:00] VITALS: BP 98/56
--- NOTE | 2018-04-11 23:51 | NUR ---
BUNG REMOVER NOTES, RECEIVED CALL FROM LAB REGARDING TROPONIN CRITICAL LEVEL 0.434, CONTACTED DERDERIAN BIAS BINDING CUTTER AND INFORMED RESULTS, WITH NO NEW ORDER AT THIS TIME, AND CONTINUE TO MONITOR, PATIENT A/O TIMES 4, NO ACUTE DISTRESS NOTED, DENIES ANY PAIN OR DISCOMFORT, WILL CONTINUE TO MONITOR CLOSELY.
[2018-04-12] VITALS: BP 108/71
[2018-04-12] MEDS: IV NS 0.9% 1,000 ML IV PRN ×2 (02:59→18:09)
[2018-04-12 03:29] LABS: BASOPHILS % (AUTO) 0.4 % (0.0-2.0); HEMATOCRIT 25 % (33-45); HEMOGLOBIN 8.6 g/dL (11.5-14.8); LYMPHOCYTES # (AUTO) 1.2 /CMM (0.8-4.8); LYMPHOCYTES % (AUTO) 17.8 % (20.0-44.0); MEAN CORPUSCULAR HGB CONC 34 g/dl (31.0-36.0); MEAN CORPUSCULAR VOLUME 96 fL (82-100); MONOCYTES # (AUTO) 0.7 /CMM (0.1-1.30); MONOCYTES % (AUTO) 10.8 % (2.0-12.0); NEUTROPHILS # (AUTO) 4.7 /CMM (1.8-8.9); PLATELET COUNT (AUTO) 106 /CMM (150-450); RED BLOOD CELL COUNT(AUTO) 2.61 MIL/uL (4.0-5.2); WHITE BLOOD COUNT (AUTO) 6.8 K/uL (4.3-11.0)
[2018-04-12 03:43] LABS: CALCIUM, SERUM 7.2 mg/dL (8.5-10.1); CARBON DIOXIDE 22 mmol/L (21-32); CHLORIDE 112 mmol/L (98-107); CREATININE 0.7 mg/dL (0.6-1.3); GLUCOSE 85 mg/dL (74-106); MAGNESIUM 1.4 mg/dL (1.8-2.4); PHOSPHORUS 2.3 mg/dL (2.5-4.9); SODIUM SERUM 143 mmol/L (136-145); UREA NITROGEN, BLOOD 4 mg/dL (7-18)
[2018-04-12 03:46] LABS: CHOLESTEROL 85 mg/dL (<200); HDL CHOLESTEROL 25 mg/dL (40-60); LDL 52 mg/dL (0-99); TRIGLYCERIDES 91 mg/dL (30-150)
[2018-04-12 04:00] VITALS: BP 113/69
--- NOTE | 2018-04-12 06:40 | NUR ---
GIG TENDER NOTE, PATIENT IN BED AWAKE, SLEEPING AT THIS TIME, BREATHING EVEN AND UNLABORED NO SOB/ACUTE DISTRESS NOTED AT THIS TIME, IV ACCESS RIGHT AC IN PLACE INTACT, SR ON DIRECTOR RETIREMENT, HR 70-80S DURING NIGHT, SAFETY MEASURES IN PLACE, CALL LIGHT WITHIN REACH, NO SIGNIFICANT CHANGE IN CONDITION DURING THE NIGHT, WILL ENDORSE CONTINUITY OF CARE TO ONCOMING NURSE.
--- NOTE | 2018-04-12 07:00 | NUR ---
SENIOR SECURITY ARCHITECT OPENING NOTES RECEIVED PT ON BED.ALERT/ORIENTED X4 WITH HUNGARIAN SPEAKING.ON TELE HR IS 83 WITH SR.ON ROOM AIR,TOLERATING WELL.NO SOB AND ACUTE DISTRESS NOTED.CAN AMBULATE WELL WITH MINIMAL ASSISTANCE.NO PAIN NOTED AT THIS TIME.IV LINE IS ON RIGHT AC G20,SITE IS CLEAN DRY AND INTACT,NO INFILTRATION NOTED.SAFETY IS MAINTAINED AT ALL TIMES.BED IS IN LOW POSITION AND LOCKED.CALL LIGHT IS WITHIN REACH.WILL CONTINUE TO MONITOR THE PT CLOSELY.
[2018-04-12 08:00] VITALS: BP 115/62
[2018-04-12] MEDS: SULFAMETH/TRIMETH 800/160 MG 1 UDTAB TABLET PO SCH ×2 (08:32→17:07)
[2018-04-12] MEDS: ASPIRIN 81 MG TAB.CHEW PO SCH (08:32)
[2018-04-12] MEDS: POTASSIUM CHLORIDE 20 MEQ TAB.PRT.SR PO SCH ×3 (10:08→12:25)
--- NOTE | 2018-04-12 10:08 | NUR ---
RESIDENT INTERN NOTES TACKER ELASTIC BAND CABRERA GALAVIZ ORDERED IV MAGNESIUM 400ML FOR MG-1.4 AND POTASSIUM 20MEQ PO ONCE FOR K-3.NEW ORDERS NOTED AND CARRIED OUT.
[2018-04-12] MEDS: Magnesium 1GM/D5W 100ML PREMIX 100 ML IV SCH ×4 (10:09→13:32)
[2018-04-12 12:00] VITALS: BP 128/71
[2018-04-12] MEDS ORDERED: K PHOS NEUTRAL 250 MG TABLET PO ONE (13:30)
[2018-04-12 16:00] VITALS: BP_SYST 111; BP_SYST 128; BP_DIAS 66; BP_DIAS 71
[2018-04-12] MEDS: ATORVASTATIN 10 MG TABLET PO SCH (17:07)
--- NOTE | 2018-04-12 18:47 | NUR ---
VOICE DATA COMMUNICATIONS ENGINEER CLOSING NOTES PT IS ON BED.HAVING DINNER.ALERT/ORIENTED X4.IV NS IS RUNNING.CAN AMBULATE WITH MINIMAL ASSISTANCE.VITAL SIGNS ARE WNL,NO TEMPERATURE NOTED IN THE SHIFT.PM MEDS ARE GIVEN.RESPIRATIONS ARE EVEN AND NONLABORED.NO COMPLICATIONS NOTED.ENDORSED TO MEDICAL OPERATIONS SUPERVISOR RN FOR CONTINUITY OF CARE.
[2018-04-12 20:00] VITALS: BP 120/66
--- NOTE | 2018-04-12 20:00 | NUR ---
TELE/RN NOTES: RECEIVED PT ON BED.ALERT/ORIENTED X4 WITH AMHARIC SPEAKING.ON TELE HR IS SR 78.ON ROOM AIR,TOLERATING WELL.NO SOB AND ACUTE DISTRESS NOTED.CAN AMBULATE WELL WITH MINIMAL ASSISTANCE.NO PAIN NOTED AT THIS TIME. HL RT AC G20 W/ IVF W/ NO S/S OF INFECTION/INFILTRATION NOTED. CONTINENT OF B/B. USES BSC. SAFETY IS MAINTAINED AT ALL TIMES. BED IS IN LOW POSITION AND LOCKED. CALL LIGHT IS WITHIN REACH. WILL CONTINUE TO MONITOR.
[2018-04-13] VITALS: BP 113/61
[2018-04-13 04:00] VITALS: BP 106/50
[2018-04-13] MEDS: IV NS 0.9% 1,000 ML IV PRN (04:02)
[2018-04-13 06:54] LABS: BASOPHILS % (AUTO) 0.2 % (0.0-2.0); EOSINOPHILS % (AUTO) 0.2 % (0.0-6.0); HEMATOCRIT 25 % (33-45); HEMOGLOBIN 8.5 g/dL (11.5-14.8); LYMPHOCYTES % (AUTO) 11.7 % (20.0-44.0); MEAN CORPUSCULAR HGB CONC 35 g/dl (31.0-36.0); MEAN CORPUSCULAR VOLUME 96 fL (82-100); MONOCYTES # (AUTO) 0.6 /CMM (0.1-1.30); MONOCYTES % (AUTO) 6.8 % (2.0-12.0); NEUTROPHILS # (AUTO) 7.2 /CMM (1.8-8.9); NEUTROPHILS % (AUTO) 81.1 % (43.0-81.0); PLATELET COUNT (AUTO) 135 /CMM (150-450); RED BLOOD CELL COUNT(AUTO) 2.55 MIL/uL (4.0-5.2); WHITE BLOOD COUNT (AUTO) 8.8 K/uL (4.3-11.0)
--- NOTE | 2018-04-13 07:14 | NUR ---
TELE/RN NOTES: REPORT GIVEN TO NEXT SHIFT NURSE FOR ANGELA.
[2018-04-13 07:22] LABS: CALCIUM, SERUM 7.6 mg/dL (8.5-10.1); CARBON DIOXIDE 22 mmol/L (21-32); CHLORIDE 113 mmol/L (98-107); CREATININE 0.8 mg/dL (0.6-1.3); GLUCOSE 89 mg/dL (74-106); MAGNESIUM 2.1 mg/dL (1.8-2.4); POTASSIUM 4.3 mmol/L (3.5-5.1); SODIUM SERUM 144 mmol/L (136-145); UREA NITROGEN, BLOOD 4 mg/dL (7-18)
--- NOTE | 2018-04-13 07:31 | NUR ---
MORTGAGE LOAN ORIGINATOR OPENING NOTES RECEIVED PATIENT IN STABLE CONDITION. IN NO APPARENT DISTRESS. BEDSIDE RAILS ARE UPX2. BED IS LOCKED AND LOWERED. CALL LIGHT IS WITHIN REACH. IV LINE IS INTACT AND PATENT. WILL CONTINUE TO MONITOR PATIENT.
[2018-04-13 08:00] VITALS: BP 105/56
[2018-04-13] MEDS: ASPIRIN 81 MG TAB.CHEW PO SCH (09:10)
[2018-04-13] MEDS: SULFAMETH/TRIMETH 800/160 MG 1 UDTAB TABLET PO SCH (09:10)
[2018-04-13] MEDS ORDERED: FEE PK DOSING 1 MIN EA MC ONE (11:27)
[2018-04-13 12:00] VITALS: BP 93/53
[2018-04-13] MEDS ORDERED: PIPERACILLIN /TAZOBACTAM 3.375 G in IV D5W 50 ML IV ONE (12:00)
[2018-04-13] MEDS ORDERED: VANCOMYCIN 1 GM in IV D5W 250 ML IV SCH (12:00)
--- NOTE | 2018-04-13 13:22 | NUR ---
CALLED PHARMACY TO PROVIDE VANCOMYCIN. PHARMACY WILL PROVIDE. SCHEDULED FOR 12:00
[2018-04-13 16:00] VITALS: BP 116/70
[2018-04-13] MEDS ORDERED: PIPERACILLIN /TAZOBACTAM 3.375 G in IV D5W 100 ML IV SCH (16:00)
--- NOTE | 2018-04-13 16:41 | NUR ---
PER PHARMACY OK TO NON ADMINISTER ZOSYN. PATIENT IS GOING TO BE TRANSFERED TO [facility].
[2018-04-13] MEDS: ATORVASTATIN 10 MG TABLET PO SCH (18:14)
--- NOTE | 2018-04-13 18:31 | NUR ---
MS RN CLOSING NOTES PATIENT IS IN STABLE CONDITION. IN NO APPARENT DISTRESS. BEDSIDE RAILS ARE UPX2. BED IS LOCKED AND LOWERED. CALL LIGHT IS WITHIN REACH. IV LINE IS INTACT AND PATENT. ALL NEEDS WERE MET. WILL ENDORSE CARE TO SENIOR SOLUTIONS ENGINEER NURSE FOR ANGELA.
--- NOTE | 2018-04-13 19:35 | NUR ---
RN MS NOTES RECEIVED PT IN BED, AWAKE ALERT ORIENTEDX4 GEORGIAN SPEAKING, BREATHING EVEN AND UNLABORED ON ROOM AIR. IV ACCESS ON THE R AC #20 G. NO COMPLAINT OF PAIN OR DISCOMFORT AT THE TIME, BED IN LOWEST LOCKED POSITION, CALL LIGHT WITHIN REACH AT ALL TIMES. WILL CONTINUE TO MONITOR, AWAITING BRADLEY LINEBACKER CREWMEMBER FOR TRANSFER TO [facility].
--- NOTE | 2018-04-13 20:17 | NUR ---
STUDY COORDINATOR NOTES PT DISCHARGED TO [facility] IN STABLE CONDITION, DAUGHTER AT BEDSIDE. TRANSFER PAPERS SIGNED AND REPORT GIVEN TO EMT, R AC IV SITE LEFT TO CONTINUE IV ANTIBIOTIC THERAPY.
[2018-04-14] MEDS ORDERED: ALENDRONATE 70 MG TABLET PO SCH (07:30)
== END 2018-04-13 21:00 | disposition short-term general hospital (02) | DRG 871 ==
LOC: ER 12:17 → TELE-TD 15:04 → TELE1 16:57 → MEDSG1 04-13 14:20
PROVIDERS: ADMIT Nurse Practitioner Acute Care; ATTEND Nurse Practitioner Acute Care
DX: A41.9 Sepsis, unspecified organism (principal); I21.A1 Myocardial infarction type 2; E87.2 Acidosis; M81.0 Age-related osteoporosis without current pathological fracture; I10 Essential (primary) hypertension; Z87.440 Personal history of urinary (tract) infections; I95.9 Hypotension, unspecified; I25.10 Atherosclerotic heart disease of native coronary artery without angina pectoris; E78.5 Hyperlipidemia, unspecified; R73.9 Hyperglycemia, unspecified; E87.6 Hypokalemia; E83.42 Hypomagnesemia; E83.39 Other disorders of phosphorus metabolism
CPT/HCPCS: 36415; 71045-TC; 80048-TC; 80061-TC; 80076-TC; 81000-TC; 83605-TC; 83735-TC; 84100-TC; 84484-TC; 85025-TC; 85730-TC; 87040-TC; 87081-TC; 87086-TC; 87186-TC; 87400; A4606; G0378; J2543; J3370; J3475; J7030; J7060; Z7610